=== PATIENT | female | born 1935 | race Caucasian/White ===

== ENCOUNTER → 2016-04-18 | Outpatient (CLI) | payer MEDICARE, BC ==
[~2016-04-18] MED LIST: ADVIL PM 38 MG-1 TAB PO; ALL DAY ALLERGY10 MG PO; ASPIRIN E.C. 8181 MG PO; BENADRYL50 MG PO; CEPHALEXIN500 M1 PO; CHERATUSSIN AC240 ML PO; COREG 3.123.125 MG/T PO; COZAAR 25MG25 MG/TAB PO; COZAAR PO; DIOVAN/HCT 12.51 TA1 PO; LASIX 20MG TABL20 MG PO; MULTIPLE VITAMI1 CAP PO; NATURAL E400 IU PO; NO HOME MEDICATIONS; NORCO 325 MG-51 TAB PO; PROZAC 20MG20 MG PO; THERAGRAN1 TA1 PO; TOPROL XL 25MG25 MG PO; VITAMIN B-650 MG PO; VITAMIN B650 MG PO; VITAMIN C500 MG PO; VITAMIN D 400400 IU PO; VITAMIN D3400 IU PO; ZYLOPRIM 100MG100 MG PO
== END ==
LOC: MC.RAD 10:18
DX: Z12.31 Encounter for screening mammogram for malignant neoplasm of breast (principal); Z85.3 Personal history of malignant neoplasm of breast

== ENCOUNTER 2016-06-05 09:03 | Outpatient (CLI) | payer MEDICARE, BC ==
[~2016-06-05] VITALS: Ht 160 cm; Wt 78.8 kg
[~2016-06-05 09:03] MED LIST changes: -COZAAR 25MG25 MG/TAB PO; -LASIX 20MG TABL20 MG PO; -TOPROL XL 25MG25 MG PO; -ZYLOPRIM 100MG100 MG PO
[2016-06-05] MEDS ORDERED: TOPROL XL 25MG25 MG PO (09:29)
[2016-06-05] MEDS ORDERED: COZAAR 25MG25 MG/TAB PO (09:30)
[2016-06-05] MEDS ORDERED: LASIX 20MG TABL20 MG PO (09:30)
[2016-06-05] MEDS ORDERED: ZYLOPRIM 100MG100 MG PO (09:31)
[2016-06-05 09:43] VITALS: BP 164/87; PULSE 83
[2016-06-05 11:00] VITALS: BP 155/74; PULSE 75
[2016-06-05 11:15] VITALS: BP 149/67; PULSE 71
[2016-06-05 11:18] VITALS: BP 155/74; PULSE 75
[2016-06-05 11:30] VITALS: BP 166/88; PULSE 70
[2016-06-05 11:45] VITALS: BP 139/63; PULSE 73
== END 2016-06-05 12:03 | disposition home or self-care (01) ==
LOC: COL.RAD 09:03
DX: M48.06 Spinal stenosis, lumbar region (principal); M43.15 Spondylolisthesis, thoracolumbar region; Z98.1 Arthrodesis status
CPT/HCPCS: Q9965

== ENCOUNTER → 2016-06-09 | Outpatient (CLI) | payer MEDICARE, BC ==
[~2016-06-09] MED LIST changes: +COZAAR 25MG25 MG/TAB PO; +LASIX 20MG TABL20 MG PO; +TOPROL XL 25MG25 MG PO; +ZYLOPRIM 100MG100 MG PO
== END ==
LOC: MHCPAIN 12:07
DX: G89.29 Other chronic pain (principal); M47.817 Spondylosis without myelopathy or radiculopathy, lumbosacral region; M53.3 Sacrococcygeal disorders, not elsewhere classified
CPT/HCPCS: G0463

== ENCOUNTER → 2016-06-19 | Outpatient (CLI) | payer MEDICARE, BC | LOC: MHCPAIN 13:38 | DX: M47.817 Spondylosis without myelopathy or radiculopathy, lumbosacral region (principal) | CPT/HCPCS: J1040; Q9967 ==